=== PATIENT | female | born 1950 | race Caucasian/White ===

== ENCOUNTER 2018-10-20 10:45 | Inpatient (IN) | payer MEDICARE, BC ==
[~2018-10-20] VITALS: Ht 165.1 cm; Wt 74.8 kg
[2018-10-20 10:51] VITALS: BP 176/110
[2018-10-20] MEDS ORDERED: LEXAPRO20 MG PO (10:55)
[2018-10-20] MEDS ORDERED: VITAMINC500 PO (10:55)
[2018-10-20] MEDS ORDERED: ASPIRIN325 PO (10:55)
[2018-10-20] MEDS ORDERED: MALIC ACID PO (10:56)
[2018-10-20] MEDS ORDERED: VITAMIN D2000 UNIT PO (10:56)
[2018-10-20] MEDS ORDERED: POTASSIUM20 PO (10:57)
[2018-10-20] MEDS ORDERED: OMEGA-31000 M1 PO (10:57)
[2018-10-20] MEDS ORDERED: GLUCOSAMINE HC500 MG PO (10:57)
[2018-10-20 11:31] LABS: ABSOLUTE EOSINOPHILS 0.1 thou/uL (0.0-0.7); ABSOLUTE LYMPHOCYTES 0.9 thou/uL (0.8-5.3); ABSOLUTE MONOCYTES 0.5 thou/uL (0.0-1.2); ABSOLUTE NEUTROPHILS 5.4 thou/uL (1.6-8.1); BASOPHILS 0.6 %; EOSINOPHILS 1.3 %; HEMATOCRIT 40.5 % (37.0-47.0); HEMOGLOBIN 13.9 gm/dL (12.0-15.0); LYMPHOCYTES 13.3 %; MCHC 34.3 g/dL (28.0-37.0); MCV 87.5 fL (80.0-100.0); MPV 8.6 fl. (7.2-11.1); NUCLEATED RBCS 0 /100WBC; PLATELET COUNT* 203 thou/uL (150-400); POLYS 77.8 %; RBC 4.63 mil/uL (4.20-5.00); RDW-CV 13.7 % (10.5-14.5)
--- NOTE | 2018-10-20 11:31 | NUR ---
PATIENT STATES AT 1000 SHE WAS AT HOME AND BEGAN HAVING DISCOMFORT IN HER CHEST DESCRIBED A HEAVINESS/PRESSURE RADIATED INTO LEFT ARM AND NECK +PALPITATIONS NOTED. DENIES N/V, DENIES DIAPHORESIS, +DYSPNEA PT ALERT AND APPROPRIATE NO DISTRESS NOTED
[2018-10-20 11:43] LABS: ANION GAP 10 mmol/L (7-16); BUN 13 mg/dL (7-18); CALCIUM 8.5 mg/dL (8.5-10.1); CHLORIDE 101 mmol/L (98-107); CO2 30 mmol/L (21-32); CREATININE 0.9 mg/dL (0.6-1.3); GLUCOSE 132 mg/dL (70-99); SODIUM 141 mmol/L (136-145)
[2018-10-20 11:57] LABS: ALBUMIN 3.9 g/dL (3.4-5.0); ALKALINE PHOSPHATASE 110 U/L (46-116); LIPASE 242 U/L (73-393); NT-PRO BRAIN NAT PEPTIDE 101 pg/mL (<300); SGOT 25 U/L (15-37); SGPT 23 U/L (30-65); TOTAL BILIRUBIN 0.5 mg/dL (<0.1-1.0); TOTAL PROTEIN 7.6 g/dL (6.4-8.2); TROPONIN-I LEVEL <0.06 ng/mL (<0.06)
[2018-10-20 11:58] LABS: POTASSIUM 2.8 mmol/L (3.5-5.1)
--- NOTE | 2018-10-20 12:13 | NUR ---
DR. MARTINEZ IN TO SEE PT.
[2018-10-20 14:10] VITALS: BP 143/83
[2018-10-20 14:15] VITALS: BP 146/80
[2018-10-20] MEDS ORDERED: POTASSIUM GLUCO99 M2 PO (14:46)
[2018-10-20] MEDS ORDERED: VITAMIN E400 UNIT PO (14:50)
[2018-10-20] MEDS ORDERED: CALCIUM 600 +1 EAC1 PO (14:50)
[2018-10-20 15:30] LABS: POTASSIUM 3.4 mmol/L (3.5-5.1); TROPONIN-I LEVEL <0.06 ng/mL (<0.06)
--- NOTE | 2018-10-20 16:57 | 2DMMODE ---
[place] [address] 2 D/M-MODE ECHOCARDIOGRAM Name: MICAELA DUBON Room: [address] IN [facility]#: [id number] Admission: 10/20/18 Attend Phys: Isaura Roman MD Discharge: Date of : 46 Date of Service: 10/20/18 1656 Report #: [id number] THIS REPORT FOR: //name// APPROVED REPORT Study performed: 10/20/2018 13:34:34 EXAM: Comprehensive 2D, Doppler, and color-flow Echocardiogram Patient Location: In-Patient Room #: ER Status: routine BSA: 1.82 HR: 95 bpm BP: 150/87 mmHg Rhythm: Atrial Fibrillation Other Information Study Quality: Good Indications Atrial Fibrillation 2D Dimensions IVSd: 11.42 (7-11mm) LVOT Diam: 20.24 (18-24mm) LVDd: 43.40 mm PWd: 9.91 (7-11mm) Ascending Ao: 37.29 (22-36mm) LVDs: 22.55 (25-40mm) Aortic Root: 28.72 mm Volumes Left Atrial Volume (Systole) LA ESV Index: 33.70 mL/m2 Aortic Valve AoV Peak Rex.: 1.54 m/s AO Peak Gr.: 9.49 mmHg LVOT Max P.72 mmHg AO Mean Gr.: 5.85 mmHg LVOT Mean P.94 mmHg LVOT Max V: 1.20 m/s AO V2 VTI: 24.83 cm LVOT Mean V: 0.79 m/s NATALIYA (VTI): 2.50 cm2 LVOT V1 VTI: 19.31 cm Mitral Valve MV Decel. Time: 138.80 ms MV PHT: 40.25 ms MVA (PHT): 5.47 [place]2 [place] [address] 2 D/M-MODE ECHOCARDIOGRAM Name: MICAELA DUBON Room: [address] IN [facility]#: [id number] Admission: 10/20/18 Attend Phys: Isaura Roman MD Discharge: Date of : 46 Date of Service: 10/20/18 1656 Report #: [id number] TDI Medial E' Rex.: 0.14 m/s Lateral E' Rex.: 0.18 m/s Pulmonary Valve PV Peak Rex.: 1.23 m/s PV Peak Gr.: 6.01 mmHg Tricuspid Valve RAP Estimate: 5.00 mmHg TR Peak Gr.: 19.79 mmHg RVSP: 24.00 mmHg PA Pressure: 24.00 mmHg Left Ventricle The left ventricle is normal size. There is normal LV segmental wall motion. There is normal left ventricular wall thickness. Left ventricular systolic function is normal. The left ventricular ejection fraction is within the normal range. LVEF is 60-65%. This study is not technically sufficient to allow evaluation of the LV diastolic function due to atrial fibrillation. Right Ventricle The right ventricle is normal size. The right ventricular systolic function is normal. Atria Left atrium is mildly dilated. The right atrium size is normal. Aortic Valve Mild aortic valve sclerosis. No aortic regurgitation is present. There is no aortic valvular stenosis. Mitral Valve Mild mitral annular calcification. There is no mitral valve regurgitation noted. No evidence of mitral valve stenosis. Tricuspid Valve The tricuspid valve is normal in structure. Trace tricuspid regurgitation. No pulmonary hypertension. Pulmonic Valve The pulmonary valve is normal in structure. There is no pulmonic valvular regurgitation[place] [address] 2 D/M-MODE ECHOCARDIOGRAM Name: MICAELA DUBON Room: [address]#: [id number] Admission: 10/20/18 Attend Phys: Isaura Roman MD Discharge: Date of : 46 Date of Service: 10/20/18 1656 Report #: [id number] The aortic root is normal in size. IVC is normal in size and collapses >50% with inspiration. Pericardium There is no pericardial effusion. <Conclusion> The left ventricle is normal size. There is normal left ventricular wall thickness. Left ventricular systolic function is normal. The left ventricular ejection fraction is within the normal range. LVEF is 60-65%. This study is not technically sufficient to allow evaluation of the LV diastolic function due to atrial fibrillation. The right ventricle is normal size. Left atrium is mildly dilated. Mild aortic valve sclerosis. No aortic regurgitation is present. There is no aortic valvular stenosis. Mild mitral annular calcification. There is no mitral valve regurgitation noted. No evidence of mitral valve stenosis. The tricuspid valve is normal in structure. IVC is normal in size and collapses >50% with inspiration. There is no pericardial effusion. There is normal LV segmental wall motion. <ELECTRONICALLY SIGNED> By: Joshua Harrell MD, FACC 10/20/181655 55 55 Joshua Harrell MD, FACC /INF
--- NOTE | 2018-10-20 19:12 | NUR ---
PT ARRIVED TO ROOM 209 VIA CART FROM ED AT 1415. ASSESSMENT CHARTED. VSS. CARDIZEM DRIP STOPPED AT 1630 FOR HEART RATES IN THE 40'S, STILL AFIB ON THE MONITOR. STRESS TEST IN THE MORNING. NPO AT MIDNIGHT. PT ATE DINNER WITHOUT DIFFICULTY.
[2018-10-20 19:14] LABS: GLYCOHEMOGLOBIN (HGB A1C) 5.1 % (4.8-5.6); T3 UPTAKE 23 % (24-39)
[2018-10-20 20:00] VITALS: BP 134/65
[2018-10-21] VITALS: BP 120/59
--- NOTE | 2018-10-21 03:15 | NUR ---
PT ALERT ORIENTED. NPO AT AR FOR CARDIAC STRESS TEST. TELEMETRY SHOWS AFIB. UP TO BR WITH ASSIST OF ONE. WILL CONTINUE TO MONITOR.
[2018-10-21 04:00] VITALS: BP 131/59
[2018-10-21 05:15] LABS: HEMATOCRIT 35.5 % (37.0-47.0); HEMOGLOBIN 12.4 gm/dL (12.0-15.0); MCH 30.6 pg (26.0-34.0); MCHC 34.8 g/dL (28.0-37.0); MCV 87.8 fL (80.0-100.0); MPV 8.9 fl. (7.2-11.1); RBC 4.04 mil/uL (4.20-5.00); RDW-CV 13.8 % (10.5-14.5); WBC 4.9 thou/uL (4.0-11.0)
[2018-10-21 05:50] LABS: ALBUMIN 3.2 g/dL (3.4-5.0); ALKALINE PHOSPHATASE 84 U/L (46-116); ANION GAP 8 mmol/L (7-16); BUN 11 mg/dL (7-18); CALCIUM 8.6 mg/dL (8.5-10.1); CHLORIDE 104 mmol/L (98-107); CHOLESTEROL 221 mg/dL (<200); CO2 28 mmol/L (21-32); CREATININE 0.8 mg/dL (0.6-1.3); GLUCOSE 89 mg/dL (70-99); HDL CHOLESTEROL 58 mg/dL (>40); LDL CHOLESTEROL 146 mg/dL (<100); POTASSIUM 3.9 mmol/L (3.5-5.1); SGOT 20 U/L (15-37); SGPT 19 U/L (30-65); SODIUM 140 mmol/L (136-145); TC:HDL 3.8 Ratio (Not establshd); TOTAL BILIRUBIN 0.6 mg/dL (<0.1-1.0); TOTAL PROTEIN 6.3 g/dL (6.4-8.2); TRIGLYCERIDE 89 mg/dL (<150); VLDL 18 mg/dL (<40)
[2018-10-21 05:51] LABS: SERUM ASSESSMENT Clear
[2018-10-21 08:07] VITALS: BP 146/71
--- NOTE | 2018-10-21 14:15 | NUR ---
Pt is A&O. Resides at home alone. Active and independent. No DME. No hx of HH or SNF. Supportive family and moravian family. Pt had stress test today. Goal is home at in. No needs anticipated.
[2018-10-21 16:00] VITALS: BP 172/61
--- NOTE | 2018-10-21 16:24 | NUR ---
PT WITHOUT C/O TODAY. PT UP AD MARYSOL IN ROOM, STEADY GAIT. TELE SB, HRR 50'S. PT ABLE TO MAKE NEEDS KNOWN, CALL LIGHT IN REACH.
--- NOTE | 2018-10-21 17:57 | CARDNUC ---
[place] [address] CARDIAC NUCLEAR IMAGING REPORT Name: MICAELA DUBON Room: [address] IN [facility]#: [id number] Admission: 10/20/18 Attend Phys: Isaura Roman MD Discharge: Date of : 46 Date of Service: 10/21/18 1757 Report #: [id number] THIS REPORT FOR: //name// ADDENDUM APPROVED REPORT Imaging Protocol: Rest Tc-99m/Stress Tc-99m 1 day Study performed: 10/20/2018 15:11:00 Indication: Chest pain Patient Location: In-Patient Stress Tech: Zakiya Tucker Stress Nurse: Aga Fishman RN NM Tech:MARLINE Jeff Ht: 5 ft 5 in Wt: 165 lbs BSA: 1.82 m2 HR: 59 bpm BP: 144/85 mmHg BMI: 27.45 Medical History Medical History: hyperlipidemia, hypertension Medications: Sotalol, Aspirin Allergies: sulfa, iodine Cardiac Risk Factors: Age, Hyperlipidemia, HTN Exercise History: Physically active Resting Data Rest SPECT myocardial perfusion imaging was performed in supine position 30 minutes following the intravenous injection of 10.6 mCi of Tc-99m Sestamibi. Time of rest injection: 1000 The images were gated to evaluate regional wall motion and calculate left ventricular ejection fraction. Administration Route: IV Administration Site: Right AC Exercise Stress At peak stress, the patient was injected intravenously with 34.7mCi of Tc-99m Sestamibi. Time of stress injection: 1130 Administration Route: IV Administration Site: Right AC Heart Rate at time of stress injection: 135 bpm. Gated Stress SPECT was performed 30 minutes after stress injection. The images were gated to evaluate regional [place] [address] CARDIAC NUCLEAR IMAGING REPORT Name: MICAELA DUBON Room: [address]#: [id number] Admission: 10/20/18 Attend Phys: Isaura Roman MD Discharge: Date of : 46 Date of Service: 10/21/18 1757 Report #: [id number] left ventricular ejection fraction. Prone imaging was performed. Stress Test Details Stress Test: Exercise stress testing was performed using a Chapin protocol. HR Max Heart Rate (APMHR): 150 bpm Resting HR: 59 bpm Target HR (85% APMHR): 127 bpm Max HR Achieved: 135 bpm % of APMHR: 90 Recovery HR: 70 bpm HR response to stress: Normal HR response to stress BP Resting BP: 144/85 mmHg Max BP: 217/94 mmHg Recovery BP: 168/94 mmHg BP response to stress: Abnormal hypertensive response to stress. ECG Resting ECG: Sinus Rhythm Stress ECG: Sinus Tachycardia ST Change: Horizontal ST depression Maximum ST Deviation: 0.5 mm Arrhythmia: None Recovery ECG: Sinus Rhythm Recovery ST Change: Horizontal ST depression Recovery ST Deviation: 0.5 mm Recovery Arrhythmia: None Clinical Reason for Termination: Completed protocol, Fatigue Stress Symptoms: None Exercise duration: 10 min 01 sec Exercise capacity: 10.16 METs Overall Exercise Capacity for Age: Superior The patient tolerated standard Chapin protocol exercise without significant symptoms. The patient exhibited excellent exercise tolerance. Stress ECG Conclusion The baseline EKG shows sinus rhythm without significant ST or T wave abnormality. EKGs obtained during and post exercise stress show 0.[address] segment depression that does not meet diagnostic criteria for stress-induced. There were no stress-[place] [address] CARDIAC NUCLEAR IMAGING REPORT Name: MICAELA DUBON Room: [address]#: [id number] Admission: 10/20/18 Attend Phys: Isaura Roman MD Discharge: Date of : 46 Date of Service: 10/21/18 1757 Report #: [id number] arrhythmias. Study Quality Study: Good Artifact: Mild Breast artifact Study Data At rest, the left ventricular ejection fraction was 64%.. Post stress, the left ventricular ejection was 60%.. TID = 0.98. Perfusion Perfusion images obtained at rest and post stress in the supine position showed a very focal distal anterior wall area of mild photopenia that resolves with post stress imaging suggesting breast attenuation artifact. No other significant defects were identified. Wall Motion Normal left ventricular wall motion. Nuclear Conclusion ECG Findings: negative for ischemia Clinical Findings: negative for ischemia Nuclear Findings: negative for ischemia Exercise Capacity: excellent Left Ventricular Function: normal Risk Study: low Myocardial perfusion images show no defect to suggest infarct or ischemia. Left ventricular systolic function appears normal on gated studies. This is a low risk study. <Conclusion> The baseline EKG shows sinus rhythm without significant ST or T wave abnormality. EKGs obtained during and post exercise stress show 0.[address] segment depression that does not meet diagnostic criteria for stress-induced. There were no stress-induced arrhythmias. <ELECTRONICALLY SIGNED> By: Royce Burrell MD, FACC 10/21/181756 56 56 Royce Burrell MD, FACC /INF
--- NOTE | 2018-10-21 18:03 | EKG ---
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 : 1950 Requested By: Ramiro Samuels Order Number: [id number] MD: Royce Burrell Measurements Intervals [place] Rate: 136 P: [place]: QRS: -32 QRSD: 85 T: 145 QT: 288 QTc: 434 Interpretive Statements Atrial fibrillation LVH with secondary repolarization abnormality Anterior Q waves, possibly due to LVH Compared to ECG 12/23/2006 09:27:45 Left ventricular hypertrophy now present Early repolarization now present Q waves now present Sinus rhythm no longer present Electronically Signed On 10-21-2018 18:03:09 REMOTE MORTGAGE UNDERWRITER by Royce Burrell [email or web address] <ELECTRONICALLY SIGNED> By: Royce Burrell MD, FACC 10/21/18 1803 1051 1051 Royce Burrell MD, FAC /EPI
--- NOTE | 2018-10-21 18:04 | EKG ---
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 : 1950 Requested By: Ramiro Samuels Order Number: [id number] MD: Royce Burrell Measurements Intervals [place] Rate: 96 P: MS: QRS: -26 QRSD: 91 T: 102 QT: 359 QTc: 454 Interpretive Statements Atrial fibrillation Abnormal R-wave progression, late transition LVH with secondary repolarization abnormality Compared to ECG 12/23/2006 09:27:45 Left ventricular hypertrophy now present Early repolarization now present Sinus rhythm no longer present Electronically Signed On 10-21-2018 18:04:09 TIMBER SIZER OPERATOR by Royce Burrell [email or web address] <ELECTRONICALLY SIGNED> By: Royce Burrell MD, FACC 10/21/18 1804 1326 1326 Royce Burrell MD, FACC /EPI
--- NOTE | 2018-10-21 18:05 | EKG ---
[place] [address] ELECTROCARDIOGRAM REPORT Name: MICAELA DUBON Room: [address] ADM IN M.R.#: [id number] Admission: 10/20/18 Attend Phys: Isaura Roman MD Discharge: Date of : 46 Report #: [id number] THIS REPORT FOR: //name// [facility] Test Date: 2018-10-21 Test Time: 04:08:37 Pat Name: MICAELA DUBON Department: Room: [address] Gender: F Identifier Horse: : 1950 Requested By: Laxmi Case Order Number: [id number] Reading MD: Royce Burrell Measurements Intervals [place] Rate: 48 P: 46 MO: 171 QRS: -13 QRSD: 93 T: 0 QT: 543 QTc: 486 Interpretive Statements Sinus bradycardia prolonged QT interval Compared to ECG 12/23/2006 09:27:45 Sinus rhythm no longer present Electronically Signed On 10-21-2018 18:05:51 RADIO STATION MANAGER by Royce Burrell [email or web address] <ELECTRONICALLY SIGNED> By: Royce Burrell MD, [facility] 10/21/18 1805 7 Royce Burrell MD, FACC /EPI
[2018-10-21 20:00] VITALS: BP 167/76
[2018-10-22] VITALS: BP 136/71
[2018-10-22 04:00] VITALS: BP 149/60
--- NOTE | 2018-10-22 04:12 | NUR ---
ASSUMED PT CARE @ 1930. A+OX4. DENIES ANY PAIN OR DISCOMFORT. EKG COMPLETE PER DR ORDER. BP CAME DOWN AFER NIGHT MEDS. PT STEADY/UP AD MARYSOL.TRACING SB/SR ON MONITOR. CALL LIGHT IN REACH. HOURLY ROUNDING AT BEDSIDE.
[2018-10-22 05:31] LABS: MCH 30.7 pg (26.0-34.0); MCHC 35.2 g/dL (28.0-37.0); MCV 87.3 fL (80.0-100.0); MPV 8.7 fl. (7.2-11.1); RBC 3.89 mil/uL (4.20-5.00); RDW-CV 13.8 % (10.5-14.5); WBC 4.8 thou/uL (4.0-11.0)
[2018-10-22 05:39] LABS: CALCIUM 8.4 mg/dL (8.5-10.1); CREATININE 0.7 mg/dL (0.6-1.3); MAGNESIUM 1.9 mg/dL (1.8-2.4); POTASSIUM 3.8 mmol/L (3.5-5.1)
[2018-10-22 08:37] VITALS: BP 141/54
--- NOTE | 2018-10-22 11:55 | NUR ---
PT ALERT AND ORIENTED. TELE TRACKING NSR/VEENA 50'S-60'S AND ALL VSS ON RA. PT DENIES CP, SOA. PT AND FAMILY EDUCATED ON SAFETY AND PLAN OF CARE. PLEASE SEE ASSESSMENT FOR ADDITIONAL INFORMATION. WILL CONT TO MONITOR
[2018-10-22 12:00] VITALS: BP 120/54
[2018-10-22] MEDS ORDERED: ELIQUIS5 MG PO (13:43)
[2018-10-22] MEDS ORDERED: BENZONATATE100 MG PO (13:43)
[2018-10-22] MEDS ORDERED: SORINE 80 MG TA80 M1 PO (13:43)
[2018-10-22] MEDS ORDERED: ASPIR 8181 MG PO (13:43)
[2018-10-22] MEDS ORDERED: LIPITOR10 MG PO (13:43)
[2018-10-22 14:06] VITALS: BP 120/54
[2018-10-22 14:15] VITALS: BP 120/54
--- NOTE | 2018-10-23 14:49 | EKG ---
[place] [address] ELECTROCARDIOGRAM REPORT Name: MICAELA DUBON Room: [address] IN M.R.#: [id number] Admission: 10/20/18 Attend Phys: Isaura Roman MD Discharge: 10/22/18 Date of : 46 Report #: [id number] THIS REPORT FOR: //name// [facility] Test Date: 2018-10-22 Test Time: 04:07:55 Pat Name: MICAELA LING Department: Room: [address] Gender: F Home Inspector: : 1950 Requested By: Laxmi Case Order Number: [id number] Reading MD: Joshua Harrell Measurements Intervals [place] Rate: 51 P: 46 [place]: 169 QRS: -19 QRSD: 93 T: 21 QT: 496 QTc: 457 Interpretive Statements Sinus rhythm Borderline left axis deviation Compared to ECG 10/21/2018 04:08:37 Sinus bradycardia persists Prolonged QT interval no longer present Electronically Signed On 10-23-2018 14:49:02 WINE CONSULTANT by Joshua Harrell [email or web address] <ELECTRONICALLY SIGNED> By: Joshua Harrell MD, FAC 10/23/18 1449 0407 0407 Joshua Harrell MD, [facility] /EPI
== END 2018-10-22 15:05 | disposition home or self-care (01) | DRG 309 ==
LOC: M.ERS 10:45 → M.TBA-ER 11:32 → M.2W 11:32
PROVIDERS: Emergency Medicine; Internal Medicine; ADMIT Family Medicine
DX: I48.0 Paroxysmal atrial fibrillation (principal); D68.69 Other thrombophilia; E78.00 Pure hypercholesterolemia, unspecified; I10 Essential (primary) hypertension; E78.5 Hyperlipidemia, unspecified; E87.6 Hypokalemia; Z79.82 Long term (current) use of aspirin; Z90.49 Acquired absence of other specified parts of digestive tract; Z88.2 Allergy status to sulfonamides; Z91.041 Radiographic dye allergy status; Z82.49 Family history of ischemic heart disease and other diseases of the circulatory system; Z79.899 Other long term (current) drug therapy

== ENCOUNTER → 2019-04-12 | Outpatient (CLI) | payer MEDICARE, BC ==
[~2019-04-12] MED LIST: ASPIR 8181 MG PO; ASPIRIN325 PO; BENZONATATE100 MG PO; CALCIUM 600 +1 EAC1 PO; ELIQUIS5 MG PO; GLUCOSAMINE HC500 MG PO; LEXAPRO20 MG PO; LIPITOR10 MG PO; MALIC ACID PO; OMEGA-31000 M1 PO; POTASSIUM GLUCO99 M2 PO; POTASSIUM20 PO; SORINE 80 MG TA80 M1 PO; VITAMIN D2000 UNIT PO; VITAMIN E400 UNIT PO; VITAMINC500 PO
--- NOTE | 2019-04-12 13:18 | 2DMMODE ---
[place] [address] 2 D/M-MODE ECHOCARDIOGRAM Name: MICAELA DUBON Room: [facility]#: [id number] Admission: 04/12/19 Attend Phys: Rosemary Lemons Discharge: Date of : 46 Date of Service: 04/12/19 1318 Report #: [id number] THIS REPORT FOR: //name// APPROVED REPORT Study performed: 04/12/2019 11:02:04 EXAM: Comprehensive 2D, Doppler, and color-flow Echocardiogram Patient Location: Out-Patient BSA: 1.82 HR: 75 bpm BP: 150/87 mmHg Other Information Study Quality: Good Indications Atrial Fibrillation Hypertension/HDD 2D Dimensions IVSd: 12.98 (7-11mm) LVOT Diam: 20.29 (18-24mm) LVDd: 45.34 mm PWd: 10.54 (7-11mm) Ascending Ao: 32.95 (22-36mm) LVDs: 23.46 (25-40mm) Aortic Root: 27.82 mm Volumes Left Atrial Volume (Systole) LA ESV Index: 25.50 mL/m2 Aortic Valve AoV Peak Rex.: 1.42 m/s AO Peak Gr.: 8.04 mmHg LVOT Max P.29 mmHg AO Mean Gr.: 4.17 mmHg LVOT Mean P.58 mmHg LVOT Max V: 1.15 m/s AO V2 VTI: 31.13 cm LVOT Mean V: 0.74 m/s NATALIYA (VTI): 2.66 cm2 LVOT V1 VTI: 25.56 cm Mitral Valve E/A Ratio: 0.73 MV Decel. Time: 256.92 ms MV E Max Rex.: 0.69 m/s MV PHT: 74.51 [place] [address] 2 D/M-MODE ECHOCARDIOGRAM Name: MICAELA DUBON Room: [facility]#: [id number] Admission: 04/12/19 Attend Phys: Rosemary Lemons Discharge: Date of : 46 Date of Service: 04/12/19 1318 Report #: [id number] MVA (PHT): 2.95 cm2 TDI E/Lateral E': 6.27 E/Medial E': 9.86 Medial E' Rex.: 0.07 m/s Lateral E' Rex.: 0.11 m/s Pulmonary Valve PV Peak Rex.: 1.05 m/s PV Peak Gr.: 4.37 mmHg Tricuspid Valve RAP Estimate: 5.00 mmHg TR Peak Gr.: 19.15 mmHg RVSP: 24.15 mmHg PA Pressure: 24.15 mmHg Left Ventricle The left ventricle is normal size. There is normal LV segmental wall motion. There is normal left ventricular wall thickness. Left ventricular systolic function is normal. The left ventricular ejection fraction is within the normal range. LVEF is 65%. Grade I - abnormal relaxation pattern. Right Ventricle The right ventricle is normal size. The right ventricular systolic function is normal. Atria The left atrium size is normal. The right atrium size is normal. Aortic Valve Aortic valve leaflets are mildly thickened. No aortic regurgitation is present. There is no aortic valvular stenosis. Mitral Valve Mild mitral annular calcification. There is no mitral valve regurgitation noted. No evidence of mitral valve stenosis. Tricuspid Valve The tricuspid valve is normal in structure. Mild tricuspid regurgitation. Pulmonic Valve The pulmonary valve is normal in structure. There is no pulmonic [place] [address] 2 D/M-MODE ECHOCARDIOGRAM Name: MICAELA DUBON ISABELLA Room: [facility]#: [id number] Admission: 04/12/19 Attend Phys: Rosemary Lemons Discharge: Date of : 46 Date of Service: 04/12/19 1318 Report #: [id number] Great Vessels The aortic root is normal in size. IVC is normal in size and collapses >50% with inspiration. Pericardium There is no pericardial effusion. <Conclusion> The left ventricle is normal size. There is normal left ventricular wall thickness. Left ventricular systolic function is normal. The left ventricular ejection fraction is within the normal range. LVEF is 65%. Grade I - abnormal relaxation pattern. The right ventricle is normal size. The left atrium size is normal. Aortic valve leaflets are mildly thickened. No aortic regurgitation is present. There is no aortic valvular stenosis. Mild mitral annular calcification. There is no mitral valve regurgitation noted. No evidence of mitral valve stenosis. The tricuspid valve is normal in structure. Mild tricuspid regurgitation. IVC is normal in size and collapses >50% with inspiration. There is no pericardial effusion. There is normal LV segmental wall motion. <ELECTRONICALLY SIGNED> By: Joshua Harrell MD, FACC 04/12/198 17 17 Joshua Harrell MD, FACC /INF
== END ==
LOC: M.CRD 10:59
DX: I08.3 Combined rheumatic disorders of mitral, aortic and tricuspid valves (principal); I48.91 Unspecified atrial fibrillation; I10 Essential (primary) hypertension

== ENCOUNTER → 2021-02-02 | Outpatient (CLI) | payer MEDICARE, BC | LOC: M.CT 10:33 | PROVIDERS: ATTEND Family Medicine | DX: K57.30 Diverticulosis of large intestine without perforation or abscess without bleeding (principal); R63.4 Abnormal weight loss ==